=== PATIENT | female | born 1980 | race African-American/Black ===

== ENCOUNTER 2019-07-18 13:29 | Emergency (ER) | payer MEDICAID ==
[~2019-07-18] VITALS: Ht 167.6 cm; Wt 115.0 kg
[2019-07-18] MEDS ORDERED: SODIUM CHLORIDE 0.9% 1,000 ML IV ONE (18:23)
[2019-07-18] MEDS ORDERED: MAGNESIUM/ALUMINUM HYDROXIDE/SIMETHICONE 30ML UDC PO STA (18:53)
[2019-07-18] MEDS ORDERED: FAMOTIDINE 20MG/2ML VIAL IV STA (18:53)
[2019-07-18] MEDS ORDERED: KETOROLAC 30MG/ML VIAL IV STA (18:53)
[2019-07-18] MEDS ORDERED: ONDANSETRON HCL 4MG/2ML INJ IV STA (18:53)
[2019-07-18 19:31] LABS: CLARITY URINE CLEAR (CLEAR); COLOR URINE YELLOW (YELLOW); KETONES URINE NEGATIVE (NEGATIVE); LEUKOCYTE ESTERASE URINE NEGATIVE (NEGATIVE); NITRITE URINE NEGATIVE (NEGATIVE); OCCULT BLOOD URINE NEGATIVE (NEGATIVE); PROTEIN URINE NEGATIVE (NEGATIVE); SPECIFIC GRAVITY URINE 1.013 (1.005-1.030); UROBILINOGEN URINE 0.2 E.U./dL (0.2-1.0)
[2019-07-18 20:36] LABS: BASOPHILS % 1.4 % (0.0-2.0); EOSINOPHILS % 3.2 % (0.0-5.0); HEMOGLOBIN. 12.9 g/dL (12.0-16.0); LYMPHOCYTES % 32.7 % (20.0-50.0); MEAN CORPUSCULAR HEMOGLOBIN 25.1 pg (28.0-32.0); MEAN CORPUSCULAR VOLUME 76.1 fL (81.0-99.0); MEAN PLATELET VOLUME 7.8 fl (7.4-10.4); MONOCYTES % 7.1 % (2.0-8.0); NEUTROPHILS % 55.6 % (40.0-76.0); PLATELET 288 x1000/uL (130-400); RED BLOOD CELL COUNT 5.13 mill/uL (4.2-5.4); RED CELL DISTRIBUTION WIDTH 16.1 % (11.6-14.6)
[2019-07-18 20:39] LABS: CHLORIDE 104 mEq/L (98-107)
[2019-07-18 22:00] VITALS: BP 133/86
== END 2019-07-18 22:29 | disposition home or self-care (01) ==
LOC: ER 14:52
DX: R10.11 Right upper quadrant pain (principal); D18.09 Hemangioma of other sites; Z90.49 Acquired absence of other specified parts of digestive tract; Z98.51 Tubal ligation status
CPT/HCPCS: 36415; 76705; 80053; 81003; 83690; 85025; 85610; 96374; 96375; 99284; J1885; J2405; J3490; J7030

== ENCOUNTER 2022-08-27 19:56 | Emergency (ER) | payer MEDICAID ==
[~2022-08-27] VITALS: Ht 167.6 cm; Wt 120.5 kg
[2022-08-27] MEDS ORDERED: HYDR-4001 MT (22:43)
[2022-08-27 22:54] VITALS: BP 118/62
== END 2022-08-27 22:55 | disposition home or self-care (01) ==
LOC: ER 19:56
DX: R51.9 Headache, unspecified (principal); Z90.49 Acquired absence of other specified parts of digestive tract; Z98.51 Tubal ligation status
CPT/HCPCS: 81025; 99282; 99283

== ENCOUNTER 2023-02-13 16:05 | Emergency (ER) | payer MEDICAID, OTHER ==
[~2023-02-13] VITALS: Ht 170.2 cm; Wt 112.0 kg
[~2023-02-13 16:05] MED LIST: HYDR-4001 MT
[2023-02-13 16:13] VITALS: BP 160/107
[2023-02-13] MEDS ORDERED: MECLIZINE 25MG TABLET PO ONE (20:30)
[2023-02-13] MEDS ORDERED: ACETAMINOPHEN 325MG TABLET PO ONE (20:30)
[2023-02-13] MEDS ORDERED: MECLIZINE 12.5MG TABLET PO NR (20:45)
[2023-02-13] MEDS ORDERED: MECL-159 MT (20:55)
[2023-02-13] MEDS ORDERED: CARB15DR63 LEFT EAR (20:55)
== END 2023-02-13 21:12 | disposition home or self-care (01) ==
LOC: ER 16:05
DX: R42 Dizziness and giddiness (principal); B34.9 Viral infection, unspecified; H61.22 Impacted cerumen, left ear; Z90.49 Acquired absence of other specified parts of digestive tract; Z98.890 Other specified postprocedural states; Z98.51 Tubal ligation status; Z79.899 Other long term (current) drug therapy
CPT/HCPCS: 71045; 81025; 93005; 99283; J8597